=== PATIENT | female | born 1950 | race Caucasian/White ===

== ENCOUNTER → 2017-09-15 | Outpatient (CLI) | payer MEDICARE, OTHER ==
[~2017-09-15] MED LIST: AMLO-543 PO; ASPI-1441 PO; CALC1TAB32 PO; CHOL500045 PO; ESTR1 PO; FLAX100038 PO; LEVO88TA45 PO; SIMV10TA98 PO; VER40 PO
--- NOTE | 2017-09-20 09:30 | RADIOLOGY IMAGING REPORT ---
FACILITY: [facility] - [place], [place] PATIENT NAME: ELLIE TAYLOR : [id number] MR: [id number] V: [id number] EXAM DATE: [id number] ORDERING PHYSICIAN: CAROLINA MONACO TECHNOLOGIST: Cha Farris PROCEDURE:BILATERAL DIGITAL SCREENING MAMMOGRAM WITH CAD AND 3D BREAST TOMOSYNTHESIS. COMPARISON:09/15/16 with priors back to 09/06/12. The patient also had ultrasound documentation of a stable hypoechoic nodule in the 7 o'clock position of the right breast, most recently 03/08/17. INDICATIONS:SCREENING FINDINGS: Breast parenchyma is heterogeneously dense. There is a small focal asymmetry in the lateral aspect of the right breast which may correlate with the sonographic finding and is mammographically stable in the CC projection back [id number]. Architectural distortion in the 12 o'clock position of the left breast is also unchanged and presents secondary to previous excisional biopsy. There are no new mammographic findings concerning for malignancy. No significant interval change. DIAGNOSTIC CATEGORY 2--BENIGN FINDING. RECOMMENDATIONS: ROUTINE MAMMOGRAM AND CLINICAL EVALUATION. IMPRESSION: BI-RADS 2: Benign finding. RECOMMENDATION: Followup screening mammogram in one year. Dictated by: Landon Pringle on 09/18/2017 at 9:16 Transcribed by: PATRICIA on 09/18/2017 at 22:18 Approved by: Danay Andersen M.D. on 09/20/2017 at 8:49 [facility]
== END ==
LOC: MAMO 04:32
PROVIDERS: ATTEND Nurse Practitioner Family
DX: Z12.31 Encounter for screening mammogram for malignant neoplasm of breast (principal); R92.8 Other abnormal and inconclusive findings on diagnostic imaging of breast
CPT/HCPCS: 77063; 77067

== ENCOUNTER → 2017-09-27 | Outpatient (CLI) | payer MEDICARE, OTHER ==
--- NOTE | 2017-09-27 11:11 | RADIOLOGY IMAGING REPORT ---
FACILITY: [facility] - [place], [place] PATIENT NAME: Catalina Garcia : 1950 MR: [id number] V: [id number] EXAM DATE: ORDERING PHYSICIAN: CAROLINA MONACO TECHNOLOGIST: Location: [facility] Patient: Catalina Garcia : 1950 Visit/Account:[id number] Date of Sevice: 09/27/2017 DEXA Scan Clinical history: Postmenopausal, hypothyroid. Comparison: None available. LUMBAR SPINE: The bone mineral density (BMD) measured from L1-L4 correlates with a Z-score 0.0 and a T-score of -1. 2 which is osteopenia as defined by the World Health Organization. The corresponding risk of fractur e in the lumbar spine is 2-3 times compared with a young adult reference population. HIP: Bone mineral density (BMD) measured in the Left total hip region correlates with a Z-score -0.1 and a T-score of -1.1 which is osteopenia as defined by the World Health Organization. The corresponding risk of fracture in the hip is 2-3 times compared with a young adult reference population. Bone mineral density (BMD) measured in the Femoral Neck region measures 0.892 g/cm2. T score is -1.0 . Osteopenia Impression: 1. Lumbar spine: Osteopenia. 2. Left Hip: Osteopenia. 3. Femoral Neck: Bone Mineral Density is 0.892 g/cm2 osteopenia The next DEXA scan of this patient should include the following sites: L1-L4 and the left hip. FRAX? WHO Fracture Risk Assessment Tool link: <http://www.shef.ac.uk/FRAX/tool.jsp?locationValue=9> PLEASE NOTE: 1) The World Health Organization defines low BMD as follows: T-score Normal > -1 Osteopenia < -1 and > -2.5 Osteoporosis < -2.5 without fractures Established osteoporosis < -2.5 with fractures 2) In general, you may wish to consider: Diagnosis Treatment Follow-up DEXA Normal BMD Prevention 2-3 years Osteopenia Prevention/therapy 1-2 years Osteoporosis Therapy Yearly 3) Fracture risk estimated from the T-score is more accurate for vertebral fractures (often spontane ous) than for hip fractures. Hip Report Dictated By: Aleks Hernandez MD at 09/27/2017 11:03 AM Report E-Signed By: Aleks Hernandez MD at 09/27/2017 11:06 AM WSN:SALIMA
== END ==
LOC: RAD 02:36
PROVIDERS: ATTEND Nurse Practitioner Family
DX: M85.89 Other specified disorders of bone density and structure, multiple sites (principal)
CPT/HCPCS: 77080

== ENCOUNTER → 2018-09-18 | Outpatient (CLI) | payer MEDICARE, OTHER ==
--- NOTE | 2018-09-19 08:37 | RADIOLOGY IMAGING REPORT ---
FACILITY: [facility] - [place] PATIENT NAME: ELLIE TAYLOR : [id number] MR: [id number] V: [id number] EXAM DATE: ORDERING PHYSICIAN: CAROLINA MONACO TECHNOLOGIST: Lindsey Rowland PROCEDURE:BILATERAL DIGITAL SCREENING MAMMOGRAM WITH CAD ASSISTED INTERPRETATION & 3D TOMOSYNTHESIS COMPARISON:Prior mammograms 09/15/17, 09/15/16, 03/18/16, 09/16/15, 09/10/14, 09/09/13. INDICATIONS:SCREENING FINDINGS: The breasts are heterogeneously dense which can obscure small masses. The parenchymal pattern has remained stable allowing for difference in mammographic technique & patient positioning. There is an area of architectural distortion in the 12 o'clock position of the Left breast that remains stable by history the patient has had a benign biopsy in this breast. DIAGNOSTIC CATEGORY 2--BENIGN FINDING. RECOMMENDATIONS: ROUTINE MAMMOGRAM AND CLINICAL EVALUATION. IMPRESSION: BIRADS 2: Benign finding. No significant abnormality is seen. Dictated by: Danay Andersen M.D. on 09/18/2018 at 17:10 Transcribed by: ALLAN on 09/19/2018 at 8:10 Approved by: Danay Andersen M.D. on 09/19/2018 at 8:36 [facility]
== END ==
LOC: MAMO 01:31
PROVIDERS: ATTEND Nurse Practitioner Family
DX: Z12.31 Encounter for screening mammogram for malignant neoplasm of breast (principal)
CPT/HCPCS: 77063; 77067

== ENCOUNTER → 2018-11-03 | Outpatient (REF) | payer MEDICARE, OTHER | LOC: ZZSTITCHES 09:50 | PROVIDERS: ATTEND Physician Assistant | DX: N39.0 Urinary tract infection, site not specified (principal); B96.89 Other specified bacterial agents as the cause of diseases classified elsewhere | CPT/HCPCS: 87077; 87088; 87186 ==

== ENCOUNTER → 2019-04-02 | Outpatient (CLI) | payer MEDICARE, OTHER ==
--- NOTE | 2019-04-02 08:14 | EKG ---
FACILITY: [facility] - [place] PATIENT NAME: ELLIE TAYLOR : [id number] MR: [id number] V: [id number] EXAM DATE: ORDERING PHYSICIAN: RESHMA ORR TECHNOLOGIST: JURGEN Shah Reason : PREOP-EYE LID Blood Pressure : / mmHG Vent. Rate : 058 BPM Atrial Rate : 058 BPM P-R Int : 156 ms QRS Dur : 084 ms QT Int : 412 ms P-R-T Axes : 074 066 055 degrees QTc Int : 404 ms Sinus bradycardia Possible Left atrial enlargement Borderline ECG When compared with ECG of 10-FEB-2015 10:02, No significant change was found Confirmed by DESI VELEZ ([id number]) on 04/02/2019 2:14:40 PM Referred By: DOMINGA Confirmed By:DESI VELEZ
== END ==
LOC: RESP 08:02
PROVIDERS: ATTEND Anesthesiology
DX: Z01.810 Encounter for preprocedural cardiovascular examination (principal); H57.813 Brow ptosis, bilateral; H02.403 Unspecified ptosis of bilateral eyelids; R94.31 Abnormal electrocardiogram [ECG] [EKG]
CPT/HCPCS: 93005